=== PATIENT | female | born 1960 | race Caucasian/White ===

== ENCOUNTER 2017-11-25 13:17 | Outpatient (CLI) | payer BC ==
[~2017-11-25 13:17] MED LIST: ARTHRITIS MED PO; PHEN100C4 PO; SOLI10TA2 PO
== END 2017-11-25 21:16 | disposition home or self-care (01) ==
LOC: SMA 13:17
PROVIDERS: ATTEND Specialist
DX: Z12.31 Encounter for screening mammogram for malignant neoplasm of breast (principal)
CPT/HCPCS: 77067